=== PATIENT | male | born 1945 ===

== ENCOUNTER → 2020-03-14 | Outpatient (CLI) | payer MEDICARE, OTHER | END | disposition home or self-care (01) | LOC: LAB SHORT 18:40 → LAB 18:40 | DX: L08.9 Local infection of the skin and subcutaneous tissue, unspecified (principal) | CPT/HCPCS: 87070; 87205 ==

== ENCOUNTER → 2020-09-09 | Outpatient (CLI) | payer MEDICARE, OTHER ==
[2020-09-15 06:08] LABS: HSV-1 DNA Negative (Negative); HSV-2 DNA Negative (Negative)
== END ==
LOC: LAB SHORT 18:57 → LAB 18:57
PROVIDERS: Physician Assistant Medical
DX: B02.9 Zoster without complications (principal); L57.0 Actinic keratosis; L57.8 Other skin changes due to chronic exposure to nonionizing radiation; L81.8 Other specified disorders of pigmentation; Z71.89 Other specified counseling
CPT/HCPCS: 87529; 87798